=== PATIENT | male | born 1995 | race Caucasian/White ===

== ENCOUNTER 2016-06-21 10:42 | Emergency (ER) | payer OTHER ==
[2016-06-21 10:51] VITALS: BP 155/89; PULSE 88; RESP 16; TEMP 99.3; O2SAT 93
--- NOTE | 2016-06-21 12:35 | EDPHY ---
H & P Time Seen by Provider: 06/21/16 12:25 HPI/ROS: CHIEF COMPLAINT: Sore throat, fatigue, rash HISTORY OF PRESENT ILLNESS: 21-year-old male presents to emergency department by private vehicle complaining of sore throat and fatigue over last 3 days. The patient developed a rash that initially started on the left side of his face which is then spread to his scalp, chest abdomen and back over last 24 hours. It is slightly itchy. No known contact with anything. No recent travel. Has felt chilled although has not taken temperature. No vomiting or diarrhea. No abdominal pain. REVIEW OF SYSTEMS: Constitutional: Chilled Eyes: No double or blurry vision. ENT: sore throat. Respiratory: No cough, no shortness of breath. Cardiac: No chest pain. Gastrointestinal: No abdominal pain, vomiting or diarrhea. Genitourinary: No dysuria. Musculoskeletal: No neck or back pain. Skin: Rash as above Neurological: No headache. Past Medical/Surgical History: negative Social History: Single Smoking Status: Never smoked Physical Exam: General Appearance: Alert, no distress. Temperature 37.4. Nontoxic appearing. Eyes: Pupils equal and round. Extraocular motions are all intact. ENT: Mouth: Posterior pharyngeal injection noted. No exudate. Small tonsils. Respiratory: No wheezing, rhonchi, or rales, lungs are clear to auscultation. Cardiovascular: Regular rate and rhythm. Gastrointestinal: Abdomen is soft and nontender, no masses, no rebound or guarding, bowel sounds normal. Neurological: Alert and oriented x 3, cranial nerves II through XII grossly intact Skin: Diffuse erythematous papular rash with some vesicular lesions noted especially to the mid back. There is also some pustules noted as well. Musculoskeletal: Nontender to palpate along the cervical, thoracic or lumbar spine. Neck is supple. Extremities: Full range of motion and no peripheral edema. Psychiatric: Patient is oriented X 3, there is no agitation. Constitutional: Initial Vital Signs Temperature (C) 37.4 C 06/21/16 10:48 Heart Rate 88 06/21/16 10:48 Respiratory Rate 16 06/21/16 10:48 Blood Pressure 155/89 H 06/21/16 10:48 O2 Sat (%) 93 06/21/16 10:48 O2 Delivery Mode Room Air Allergies/Adverse Reactions: No Known Allergies Allergy (Unverified 06/21/16 10:51) Home Medications: Medication Instructions Recorded Valacyclovir HCl [Valtrex] 1,000 mg PO TID #21 tab 06/21/16 Medical Decision Making ED Course/Re-evaluation: 21-year-old male presents with diffuse rash. Clinically this appears herpetic and possibly related to varicella. It is pruritic. A viral herpetic culture and viral varicella culture has been ordered and is pending. Intact vesicles were used for wound culture. The patient will be started on antiviral medication, Valtrex. The patient was also seen and examined by Dr. Lizama. I doubt this patient has a bacterial illness. I did discuss with the patient testing for HIV and syphilis with his primary care provider. Patient will follow up with his [place] physician for this. The patient is in a monogamous relationship and is not concerned about STDs. I advised the patient to return to the emergency department if he developed fever or if he felt worse in any way. Differential Diagnosis: Including but not limited to varicella, herpetic rash, cellulitis, STD, medication reaction, contact dermatitis - Data Points Laboratory Results: Laboratory Results 06/21/16 12:49 06/21/16 12:49 06/21/16 06/21/16 06/21/16 Unknown 14:12 12:49 WBC 5.12 10^3/uL (3.80-9.50) RBC 5.09 10^6/uL (4.40-6.38) Hgb 15.9 g/dL (13.7-17.5) Hct 45.3 % (40.0-51.0) MCV 89.0 fL (81.5-99.8) MCH 31.2 pg (27.9-34.1) MCHC 35.1 g/dL (32.4-36.7) RDW 11.9 % (11.5-15.2) Plt Count 142 L 10^3/uL (150-400) MPV 10.5 fL (8.7-11.7) Neut % (Auto) 62.3 % (39.3-74.2) Lymph % (Auto) 26.0 % (15.0-45.0) Knox % (Auto) 10.7 % (4.5-13.0) Eos % (Auto) 0.0 L % (0.6-7.6) Baso % (Auto) 0.6 % (0.3-1.7) Nucleat RBC Rel Count 0.0 % (0.0-0.2) Absolute Neuts (auto) 3.19 10^3/uL (1.70-6.50) Absolute Lymphs (auto) 1.33 10^3/uL (1.00-3.00) Absolute Monos (auto) 0.55 10^3/uL (0.30-0.80) Absolute Eos (auto) 0.00 L 10^3/uL (0.03-0.40) Absolute Basos (auto) 0.03 10^3/uL (0.02-0.10) Absolute Nucleated RBC 0.00 10^3/uL (0-0.01) Immature Gran % 0.4 % (0.0-1.1) Seg Neutrophils % 30 % Band Neutrophils % 37 % Lymphocytes % 27 % Monocytes % 5 % Basophils % 1 % Immature Gran # 0.02 10^3/uL (0.00-0.10) Absolute Seg Neuts 1.54 L 10^/uL (1.70-6.50) Absolute Band Neuts 1.89 H 10^3/uL (0.00-0.70) Absolute Lymphocytes 1.38 10^3/uL (1.00-3.00) Absolute Monocytes 0.26 L 10^3/uL (0.30-0.80) Absolute Basophils 0.05 10^3/uL (0.02-0.10) RBC/WBC/PLT Morphology NORMAL (NORMAL) Atypical Lymphocytes 3+ H Platelet Estimate ADEQUATE (ADEQ) Smear Review By Kalei CASE MD Sodium 138 mEq/L (134-144) Potassium 4.0 mEq/L (3.5-5.2) Chloride 98 mEq/L (97-110) Carbon Dioxide 24 mEq/l (22-31) Anion Gap 16 mEq/L (8-16) BUN 9 mg/dL (7-23) Creatinine 0.9 mg/dL (0.7-1.3) Estimated GFR > 60 Glucose 97 mg/dL (70-100) Calcium 9.0 mg/dL (8.5-10.4) Total Bilirubin 0.8 mg/dL (0.1-1.4) Conjugated Bilirubin 0.2 mg/dL (0.0-0.5) Unconjugated Bilirubin 0.6 mg/dL (0.0-1.1) AST 73 H IU/L (17-59) ALT 66 IU/L (21-72) Alkaline Phosphatase 63 IU/L (38-126) Total Protein 8.1 g/dL (6.3-8.2) Albumin 4.4 g/dL (3.5-5.0) HSV Source Description Pending HSV I DNA PCR Pending HSV II DNA PCR Pending Monoscreen NEGATIVE (NEGATIVE) Group A Strep Screen Group A Strep DNA Pending VZV DNA (PCR) Pending 06/21/16 11:35 WBC RBC Hgb Hct MCV MCH MCHC RDW Plt Count MPV Neut % (Auto) Lymph % (Auto) Knox % (Auto) Eos % (Auto) Baso % (Auto) Nucleat RBC Rel Count Absolute Neuts (auto) Absolute Lymphs (auto) Absolute Monos (auto) Absolute Eos (auto) Absolute Basos (auto) Absolute Nucleated RBC Immature Gran % Seg Neutrophils % Band Neutrophils % Lymphocytes % Monocytes % Basophils % Immature Gran # Absolute Seg Neuts Absolute Band Neuts Absolute Lymphocytes Absolute Monocytes Absolute Basophils RBC/WBC/PLT Morphology Atypical Lymphocytes Platelet Estimate Smear Review By Sodium Potassium Chloride Carbon Dioxide Anion Gap BUN Creatinine Estimated GFR Glucose Calcium Total Bilirubin Conjugated Bilirubin Unconjugated Bilirubin AST ALT Alkaline Phosphatase Total Protein Albumin HSV Source Description HSV I DNA PCR HSV II DNA PCR Monoscreen Group A Strep Screen NEGATIVE (NEGATIVE) Group A Strep DNA VZV DNA (PCR) Departure - Departure Disposition: Home, Routine, Self-Care Clinical Impression: Vesicular eruption, generalized Condition: Good Instructions: Chickenpox (ED), Viral Exanthem (ED) Additional Instructions: Benadryl 50mg every 6 hours for itching. Do not itch rash! Valtrex 1000mg every 8 hours for 7 days. Call for the results of your wound culture in 48 hours. Referrals: Meche Reed MD [Medical Doctor] - 2-3 days, if not improved (Primary care provider [facility]) Prescriptions: Valacyclovir HCl [Valtrex] 1,000 mg PO TID #21 tab
[2016-06-21 12:59] LABS: % IMMATURE GRANULYOCYTES 0.4 % (0.0-1.1); ABSOLUTE IMMATURE GRANULOCYTES 0.02 10^3/uL (0.00-0.10); ADD DIFF? NO; ADD MORPH? NO; ADD SCAN? YES; FRAGMENT RBC FLAG 0 (0-99); HEMATOCRIT 45.3 % (40.0-51.0); HEMOGLOBIN 15.9 g/dL (13.7-17.5); LEFT SHIFT FLG 20 (0-99); LIPEMIA HEMOLYSIS FLAG 90 (0-99); MEAN CELL HEMOGLOBIN 31.2 pg (27.9-34.1); MEAN CELL HEMOGLOBIN CONCENTR. 35.1 g/dL (32.4-36.7); MEAN PLATELET VOLUME 10.5 fL (8.7-11.7); PLATELET CLUMPS FLAG 0 (0-99); PLATELET COUNT 142 10^3/uL (150-400); RED BLOOD CELL COUNT 5.09 10^6/uL (4.40-6.38); RED CELL DISTRIBUTION WIDTH 11.9 % (11.5-15.2)
[2016-06-21 13:01] LABS: ATYPICAL LYMPHOCYTE FLAG 300 (0-99)
[2016-06-21 13:27] LABS: ANION GAP 16 mEq/L (8-16); CARBON DIOXIDE 24 mEq/l (22-31); CHLORIDE 98 mEq/L (97-110); CREATININE 0.9 mg/dL (0.7-1.3); GLOMERULAR FILTRATION RATE > 60; GLUCOSE 97 mg/dL (70-100); SODIUM 138 mEq/L (134-144)
[2016-06-21 13:29] LABS: SCAN POSITIVE
[2016-06-21 13:34] LABS: PLATELET ESTIMATE ADEQUATE (ADEQ)
[2016-06-21 13:54] LABS: ALBUMIN 4.4 g/dL (3.5-5.0); BILIRUBIN,TOTAL 0.8 mg/dL (0.1-1.4); BILIRUBIN-CONJUGATED 0.2 mg/dL (0.0-0.5); BILIRUBIN-UNCONJUGATED 0.6 mg/dL (0.0-1.1); TOTAL PROTEIN 8.1 g/dL (6.3-8.2)
[2016-06-22 21:52] LABS: SPECIMEN SOURCE BACK (()); VARICELLA ZOSTER POSITIVE (Negative)
== END 2016-06-21 15:01 | disposition home or self-care (01) ==
DX: R23.8 Other skin changes (principal)
CPT/HCPCS: 87529-90